=== PATIENT | female | born 1985 | race Hispanic/Latino ===

== ENCOUNTER 2020-08-25 22:34 | Emergency (ER) | payer OTHER | END 2020-08-25 23:17 | disposition home or self-care (01) | LOC: EDH 22:34 | DX: S30.817A Abrasion of anus, initial encounter (principal); Z72.0 Tobacco use; X58.XXXA Exposure to other specified factors, initial encounter; Y93.89 Activity, other specified; Y92.89 Other specified places as the place of occurrence of the external cause; Y99.8 Other external cause status ==